=== PATIENT | male | born 1955 | race Caucasian/White ===

== ENCOUNTER 2016-09-23 09:45 | Day surgery (SDC) | payer OTHER ==
[~2016-09-23] VITALS: Ht 177.8 cm; Wt 88.5 kg
[~2016-09-23 09:45] MED LIST: 0.9% Sodium Chloride 1,000 ML IV SCH; ACET325T51 PO; HYDR-4003 PO; IBUP800T28 PO; NAPR220C11 PO; Sodium Chloride LOK Flush 10 mL Syringe IV PRN; fentaNYL-PF 50 mCg/mL 2 mL Inj IVPUSH PRN
[2016-09-23 10:49] VITALS: BP 132/88; PULSE 64; RESP 14; O2SAT 98
[2016-09-23] MEDS ORDERED: CYCL5TAB PO (10:53)
[2016-09-23 12:06] VITALS: BP 118/73; PULSE 63; RESP 16; O2SAT 97
[2016-09-23 12:16] VITALS: BP 116/71; PULSE 60; RESP 16; O2SAT 96
[2016-09-23 12:26] VITALS: BP 115/73; PULSE 60; RESP 16; O2SAT 95
--- NOTE | 2016-09-24 09:21 | ENDO ---
[address] [address] ENDOSCOPY PROCEDURE PATIENT: ERNA BLUNT : 1955 MR#: [id number] ADMIT: 09/23/2016 JOB ID: [id number] DATE OF SERVICE: 09/23/2016 PROCEDURE PERFORMED: Colonoscopy. INDICATIONS: Blood in stool. ASA CLASSIFICATION: The patient's ASA classification is II. MALLAMPATI SCORE: Mallampati score was 2. MEDICATIONS: 1. Versed 5 mg. 2. Fentanyl 100 mcg. INSTRUMENT USED: PCF-H190L. PREPARATION QUALITY: Fair. PROCEDURE DETAILS: After informed consent was obtained, the patient was brought into the GI suite, where he was placed on oxygen via nasal cannula and monitored with continuous pulse oximeter, telemetry, and blood pressure monitoring. A time-out was performed. Then, he was placed in the left lateral decubitus position and medications were administered for sedation. Digital rectal exam was performed which was unremarkable. The colonoscope was then inserted into the rectum and advanced under direct visualization to the cecum, which was identified by the presence of the ileocecal valve and appendiceal orifice. Once the cecum was reached, the colonoscope was withdrawn back into the rectum, as the mucosa and lumen were examined. In the rectum, retroflexion was performed. Following retroflexion, remaining air in the rectum was suctioned, and procedure was completed. FINDINGS: 1. In the ascending colon, there were two polyps ranging in size from diminutive to 4 mm. The diminutive polyp was removed with cold biopsy forceps, and the larger polyp was removed with a cold snare. 2. In the sigmoid colon there was an approximately 4 mm sessile polyp. It was removed with a cold snare. 3. Retroflexed views in the rectum revealed small to moderate-sized internal hemorrhoids. IMPRESSION: 1. Two ascending colon polyps. 2. Sigmoid polyp. 3. Internal hemorrhoids. RECOMMENDATIONS: 1. Fiber-rich diet. 2. The patient should have rectal bleeding with bowel movements. Consider trial of Anusol suppositories. COMPLICATIONS: None. ESTIMATED BLOOD LOSS: Less than 5 mL.
--- NOTE | 2016-09-24 14:52 | PATH ---
SURGICAL PATHOLOGY Attending Physician:Tim Mckinnon CASE STATUS: Signed Out PATIENT NAME: ERNA BLUNT PID: [id number] : 1955 DATE COLLECTED:09/23/2016 21:16 SPECIMEN: 1: Colon, Biopsy 2: Colon, Biopsy CLINICAL HISTORY: 1). SIGMOID POLYP X1 2). ASCENDING POLYP X2 FINAL DIAGNOSIS: 1. Sigmoid Colon, Polyp, Biopsy: Sessile serrated adenoma. 2. Ascending Colon, Polyp, Biopsy: Portion of tubular adenoma x1; negative for high-grade dysplasia. Portion of sessile serrated adenoma x1. ICD10: K63.5 GROSS DESCRIPTION: The specimen is received in two formalin filled containers labeled with the patient's name. 1). The specimen is sublabeled "sigmoid polyp" and consists of a 0.3 x 0.3 x 0.3 CM torsion of tissue which is entirely submitted in cassette 1A. 2). The specimen is sublabeled "ascending polyp" and consists of 2 portions of tissue which aggregate to 0.3 x 0.3 x 0.2 CM. The specimen is entirely submitted in cassette 2A. 09/23/2016 [facility] ICD-9 CODES: CPT CODES: 1: 51679 2: 85706 Electronically Signed Out Savanah Cisneros MD [facility] Pathology [facility], [place] [address] Technical component performed at [facility], [address] [place] [address] Ave[address], [place], [address]
== END 2016-09-23 23:59 | disposition home or self-care (01) ==
LOC: END 09:45
PROVIDERS: ATTEND Internal Medicine Gastroenterology
DX: D12.5 Benign neoplasm of sigmoid colon (principal); D12.2 Benign neoplasm of ascending colon; Z86.010 Personal history of colon polyps; Z85.72 Personal history of non-Hodgkin lymphomas; Z92.3 Personal history of irradiation; K64.8 Other hemorrhoids
CPT/HCPCS: 45380; 45385; 99153; G0500; J2250; J3010; J7030